=== PATIENT | female | born 1955 | race Caucasian/White ===

== ENCOUNTER 2017-11-05 09:39 | Outpatient (RCR) | payer OTHER | END 2017-11-06 | LOC: PT 09:39 | PROVIDERS: ATTEND Podiatrist Foot & Ankle Surgery | DX: M79.672 Pain in left foot (principal); M77.9 Enthesopathy, unspecified ==

== ENCOUNTER → 2017-12-07 | Outpatient (RCR) | payer OTHER | LOC: PT 11-08 10:21 | PROVIDERS: ATTEND Podiatrist Foot & Ankle Surgery | DX: M79.672 Pain in left foot (principal); M77.9 Enthesopathy, unspecified; M62.81 Muscle weakness (generalized) ==

== ENCOUNTER 2017-12-21 08:54 | Outpatient (RCR) | payer OTHER | END 2018-01-07 | LOC: PT 08:54 | PROVIDERS: ATTEND Podiatrist Foot & Ankle Surgery | DX: M77.9 Enthesopathy, unspecified (principal); M79.672 Pain in left foot; M62.81 Muscle weakness (generalized) ==